=== PATIENT | female | born 1960 | race Caucasian/White ===

== ENCOUNTER 2016-08-29 10:10 | Observation (INO) | payer BC ==
[2016-08-29] VITALS (50 sets, daily range): BP systolic 144–165; BP diastolic 80–93; PULSE 65–68; TEMP 97.7–97.9; O2SAT 96–100
[~2016-08-29] VITALS: Wt 100.3 kg
[2016-08-29 11:27] LABS: PH 6 (5-8); URINE APPEARANCE Hazy; URINE BACTERIA Rare /hpf; URINE BILIRUBIN Negative (NEGATIVE); URINE BLOOD 1+ (NEGATIVE); URINE COLOR Yellow; URINE GLUCOSE Negative (NEGATIVE); URINE KETONE Negative (NEGATIVE); URINE RBC 0-2 /hpf; URINE UROBILINOGEN Negative (NEGATIVE)
[2016-08-29 11:30] LABS: BASO % 0.5 % (0.0-2.0); EOS # 0.1 (0.0-0.7); EOS % 1.3 % (0-4.0); GRAN # 3.8 (1.4-6.5); HEMATOCRIT 44.1 % (37.0-47.0); HEMOGLOBIN 14.1 g/dl (12.5-16.0); LYMPH # 1.6 (1.2-3.4); LYMPH % 26.9 % (20.0-51.0); MEAN CELL VOLUME 83 fl (80.0-100.0); MEAN CORPUSCULAR HEMOGLOBIN 27 pg (27.0-31.0); MEAN CORPUSCULAR HGB CONC 32 g/dl (33.0-37.0); MEAN PLATELET VOLUME 10.5 fl (7.4-10.4); MONO # 0.5 (0.1-0.6); PLATELET COUNT 270 K/mm3 (130-400); RED BLOOD COUNT 5.32 M/mm3 (4.10-5.30); REDCELL DISTRIBUTION WIDTH-CV 14.2 % (11.5-14.5)
[2016-08-29 11:55] LABS: PROTHROMBIN TIME 11.1 SECONDS (9.7-12.8)
[2016-08-29 11:58] LABS: PARTIAL THROMBOPLASTIN TIME 30.6 SECONDS (26.0-37.0)
[2016-08-29 12:07] LABS: ADJUSTED CALCIUM 8.8 mg/dL (8.4-10.2); ALBUMIN 4.3 gm/dL (3.5-5.0); CREATININE, serum 0.77 mg/dL (0.52-1.25); MAGNESIUM 1.8 mg/dL (1.6-2.3); PHOSPHOROUS 3.6 mg/dL (2.5-4.5); POTASSIUM 4.1 mmol/L (3.4-5.0); TOTAL PROTEIN 7.5 gm/dL (6.4-8.2)
[2016-08-29 12:36] LABS: THYROID STIMULATING HORMONE 1.46 uIU/mL (0.465-4.680)
[2016-08-29 15:23] LABS: ERYTHROCYTE SEDIMENTATION RATE 8 mm/hr (0-30)
[2016-08-29 20:41] LABS: THYROXINE (T4)-TOTAL 10.6 ug/dL (5.5-11.0)
[2016-08-30 00:27] VITALS: BP 135/80; PULSE 59; TEMP 98
[2016-08-30 04:00] VITALS: BP 131/76; PULSE 58; TEMP 97.9
[2016-08-30 06:38] LABS: BASO % 0.4 % (0.0-2.0); EOS # 0.1 (0.0-0.7); EOS % 2.3 % (0-4.0); GRAN # 2.8 (1.4-6.5); GRAN % 55.6 % (42.2-75.2); HEMATOCRIT 41.9 % (37.0-47.0); HEMOGLOBIN 13.6 g/dl (12.5-16.0); LYMPH # 1.6 (1.2-3.4); LYMPH % 32.1 % (20.0-51.0); MEAN CELL VOLUME 82 fl (80.0-100.0); MEAN CORPUSCULAR HEMOGLOBIN 27 pg (27.0-31.0); MEAN CORPUSCULAR HGB CONC 33 g/dl (33.0-37.0); MEAN PLATELET VOLUME 10.2 fl (7.4-10.4); MONO # 0.5 (0.1-0.6); MONO % 9.2 % (1.7-9.3); PLATELET COUNT 239 K/mm3 (130-400); RED BLOOD COUNT 5.11 M/mm3 (4.10-5.30); REDCELL DISTRIBUTION WIDTH-CV 14.1 % (11.5-14.5); WHITE BLOOD COUNT 5.1 K/mm3 (4.8-10.8)
[2016-08-30 06:46] LABS: CALCIUM 8.5 mg/dL (8.4-10.2); CREATININE, serum 0.83 mg/dL (0.52-1.25); POTASSIUM 4.2 mmol/L (3.4-5.0)
[2016-08-30 07:27] VITALS: BP 157/81; PULSE 65; TEMP 97
[2016-08-30 11:58] VITALS: BP 143/84; PULSE 69; TEMP 96.9
[2016-08-30] MEDS ORDERED: NORVASC 5MG5 MG/TAB PO (13:20)
[2016-08-30] MEDS ORDERED: ASPI325T6 PO (13:20)
[2016-08-30] MEDS ORDERED: LIPITOR20 MG PO (13:20)
[2016-08-31 07:58] LABS: FACTOR V LEIDEN MUTATION B Negative (Negative); PT G20210A MUTATION B Negative (Negative)
[2016-09-01 09:02] LABS: PROTEIN C ACTIVITY 137 % (70-150)
[2016-09-01 09:06] LABS: PROTEIN S ACTIVITY 120 % (65-149)
[2016-09-02 11:24] LABS: LUPUS ANTICOAGULANT PT 11.4 sec (()); LUPUS ANTICOAGULANT PTT 27 sec (26 - 36)
[2016-09-02 12:08] LABS: LUPUS ANTICOAGULANT DRVVT 0.8 ratio (())
[2016-09-03 18:20] LABS: .ANTICARDIOLIPIN IGG <9.4 GPL (())
== END 2016-08-30 14:35 | disposition home or self-care (01) ==
LOC: COL.ER 10:10 → ICU 16:18 → IMCU 16:18 → ICU 18:58
PROVIDERS: Emergency Medicine; Nurse Practitioner Family; Psychiatry & Neurology Neurology
DX: I63.9 Cerebral infarction, unspecified (principal); R47.9 Unspecified speech disturbances; Z86.69 Personal history of other diseases of the nervous system and sense organs; Z82.3 Family history of stroke; Z83.3 Family history of diabetes mellitus; Z82.49 Family history of ischemic heart disease and other diseases of the circulatory system
CPT/HCPCS: 99239; A9585; G0378; J7030; Q9967

== ENCOUNTER 2016-10-10 09:30 | Outpatient (CLI) | payer BC ==
[2016-10-10] VITALS (12 sets, daily range): BP systolic 82–120; BP diastolic 43–105; PULSE 35–69; TEMP 97.5
[~2016-10-10] VITALS: Ht 165.2 cm; Wt 95.5 kg
[~2016-10-10 09:30] MED LIST: ASPI325T6 PO; LIPITOR20 MG PO; NORVASC 5MG5 MG/TAB PO
[2016-10-10] MEDS ORDERED: LOPRESSOR 225 MG/TAB PO (11:16)
[2016-10-10] MEDS ORDERED: LIPITOR20 MG PO (11:21)
[2016-10-10] MEDS ORDERED: ASPIRIN 32325 MG/TAB PO (11:21)
[2016-10-10] MEDS ORDERED: NORVASC 5MG5 MG/TAB PO (11:21)
[2016-10-10 11:49] LABS: INR 1.1 (0.8-3.0); PROTHROMBIN TIME 11.8 SECONDS (9.7-12.8)
[2016-10-10 11:51] LABS: HEMATOCRIT 40.5 % (37.0-47.0); HEMOGLOBIN 13.3 g/dl (12.5-16.0); MEAN CELL VOLUME 82 fl (80.0-100.0); MEAN CORPUSCULAR HEMOGLOBIN 27 pg (27.0-31.0); MEAN CORPUSCULAR HGB CONC 33 g/dl (33.0-37.0); MEAN PLATELET VOLUME 10.7 fl (7.4-10.4); PLATELET COUNT 211 K/mm3 (130-400); RED BLOOD COUNT 4.97 M/mm3 (4.10-5.30); REDCELL DISTRIBUTION WIDTH-CV 14.2 % (11.5-14.5); WHITE BLOOD COUNT 5.8 K/mm3 (4.8-10.8)
[2016-10-10 12:21] LABS: CALCIUM 9.1 mg/dL (8.4-10.2); CREATININE, serum 0.83 mg/dL (0.52-1.25); POTASSIUM 4.6 mmol/L (3.4-5.0)
== END 2016-10-10 16:21 | disposition home or self-care (01) ==
LOC: COL.RAD 09:30
PROVIDERS: Internal Medicine Interventional Cardiology
DX: I63.9 Cerebral infarction, unspecified (principal); G93.89 Other specified disorders of brain; I10 Essential (primary) hypertension; I72.0 Aneurysm of carotid artery; E78.5 Hyperlipidemia, unspecified; Z86.73 Personal history of transient ischemic attack (TIA), and cerebral infarction without residual deficits
CPT/HCPCS: A9585; J2250; J3010

== ENCOUNTER → 2018-03-23 | Outpatient (CLI) | payer BC ==
[~2018-03-23] MED LIST changes: +ASPIRIN 32325 MG/TAB PO; +LOPRESSOR 225 MG/TAB PO
== END ==
LOC: MC.RAD 02-08 07:00
DX: Z12.31 Encounter for screening mammogram for malignant neoplasm of breast (principal)

== ENCOUNTER → 2023-07-07 | Outpatient (CLI) | payer MEDICAID ==
[~2023-07-07] MED LIST changes: +ERGOCALCIFER50000 IU PO; +LEXAPRO 10MG10 MG PO; +LIORESAL 1010 MG/TAB PO; +LIPITOR 40MG TA40 MG PO; +MELATIN 3 MG-11 TAB PO; +NEURONTIN100 MG/CAP PO; +NYAMYC100000 U/G TP; +PEPCID 20MG TAB20 MG PO; +PLAVIX 75MG TAB75 MG PO; +TRIAMCINOLONE A15 GM TP; +TYLENOL 325MG325 MG PO; +ZEGERID 40 MG-11 CAP PO; +ZYRTEC 10MG10 MG PO
== END ==
LOC: MHCPAIN 14:45
DX: M79.2 Neuralgia and neuritis, unspecified (principal); I63.9 Cerebral infarction, unspecified; R25.2 Cramp and spasm; I69.351 Hemiplegia and hemiparesis following cerebral infarction affecting right dominant side
CPT/HCPCS: G0463

== ENCOUNTER → 2023-10-14 | Outpatient (RCR) | payer MEDICARE, MEDICAID | END | disposition home or self-care (01) | LOC: MKS.ESL.PT → MKS.ESL.OT 10-07 11:15 → MKS.ESL.PT 10-09 10:30 | DX: I69.30 Unspecified sequelae of cerebral infarction (principal) ==

== ENCOUNTER → 2023-10-27 | Outpatient (CLI) | payer MEDICARE, MEDICAID | LOC: MHCPAIN 09:43 | DX: I69.352 Hemiplegia and hemiparesis following cerebral infarction affecting left dominant side (principal); M79.2 Neuralgia and neuritis, unspecified; R25.2 Cramp and spasm | CPT/HCPCS: G0463 ==

== ENCOUNTER 2024-01-08 12:39 | Emergency (ER) | payer MEDICARE, MEDICAID ==
[~2024-01-08] VITALS: Ht 162.6 cm; Wt 100.0 kg
[2024-01-08 13:23] VITALS: TEMP 98.1
[2024-01-08 17:39] LABS: BASO % 0.4 % (0.0-2.0); EOS # 0.3 K/mm3 (0.0-0.7); EOS % 5.4 % (0.0-4.0); GRAN # 2.3 K/mm3 (1.4-6.5); GRAN % 47.4 % (42.2-75.2); HEMATOCRIT 43.5 % (37.0-47.0); HEMOGLOBIN 14.2 g/dl (12.5-16.0); LYMPH # 1.7 K/mm3 (1.2-3.4); LYMPH % 34.6 % (20.0-51.0); MEAN CELL VOLUME 81 fl (80.0-100.0); MEAN CORPUSCULAR HEMOGLOBIN 26 pg (27-31); MEAN CORPUSCULAR HGB CONC 33 g/dl (33.0-37.0); MONO # 0.6 K/mm3 (0.1-0.6); PLATELET COUNT 212 K/mm3 (130-400); REDCELL DISTRIBUTION WIDTH-CV 14.4 % (11.5-14.5)
[2024-01-08 17:57] LABS: ALBUMIN 3.6 g/dL (3.4-4.8); BILIRUBIN,TOTAL 0.7 mg/dL (0.2-1.2); CALCIUM 9.1 mg/dL (8.4-10.2); CREATININE, serum 0.83 mg/dL (0.57-1.11)
[2024-01-08 19:00] VITALS: BP 169/104; PULSE 68
== END 2024-01-08 19:10 | disposition home or self-care (01) ==
LOC: COL.ER 12:39
PROVIDERS: Emergency Medicine
DX: L74.0 Miliaria rubra (principal)